=== PATIENT | male | born 1960 | race Caucasian/White ===

== ENCOUNTER 2017-01-10 21:10 | Emergency (ER) | payer MEDICARE ==
--- NOTE | 2017-01-11 01:31 | ED CLINICAL REPORT ---
Clinical Report - Physicians/Mid Levels [place] [address] [place] [address] 01/10/2017 21:13 Patient: ZAC FLANAGAN Time Seen: 22:30. Arrived- By private vehicle. Historian- patient and family. HISTORY OF PRESENT ILLNESS Chief Complaint: BACK PAIN. Onset was today Mr Flanagan has severe chronic back pain of years duration. Several months ago he became unable to follow up with this pain management service for financial reasons. He believes that his principle diagnosis is spinal stenosis. He pain as been difficult for years is worse for 7 days, and became intolerable today. and it is still present. It was abrupt in onset and has been constant and waxing/waning. Modifying factors. (pain is much worse with movement). It is described as being severe and in the area of the lower lumbar spine. The quality is noted to be "pain" and similar to prior episodes. No radiation. No bladder dysfunction, bowel dysfunction, sensory loss or motor loss. Additional history - No reg meds in 6 months. Patient denies an injury. No other injury. Similar symptoms previously: Many times. Recent medical care: Not recently seen/assessed. REVIEW OF SYSTEMS No fever, fever, eye irritation, mouth sores or chest pain. No difficulty breathing, abdominal pain, black stools, bloody stools or alteration in mental status. No head injury, numbness or weakness. The patient has had back pain. PAST HISTORY PCP: Dr Vern Rodríguez Illness: Back, psioriasis, PROBLEMS: Chronic Back Pain. Hypertension. Back Pain. --22:24 Girish Powell R.N. Arthritis of spine. --22:32 Girish Powell R.N. ADDITIONAL SURGERIES: Cervical spinal fusion. R knee surgery. --22:23 Girish Powell R.N. Tonsillectomy. Medications: Lisinopril Oral. Methocarbamol Oral. LIsinopril. Allergies: Demerol. Lactose (Intolerance). ADDITIONAL NOTES The nursing notes have been reviewed (Despite RN note of radiation of pain to the legs, pt tells me pain stays in the low back). PHYSICAL EXAM Vital Signs: 01/11/2017 01:35 BP: 113/97. HR: 88. RR: 16. O2 saturation: 95%. Bynum-Sy pain scale: 01/17. 01/10/2017 23:21 BP: 141/76. HR: 95. RR: 16. O2 saturation: 94%. 01/10/2017 22:20 BP: 155/82. HR: 108. RR: 16. O2 saturation: 96%. Temp: 98.3 F. Pain level now: 07/19. Appearance: Alert. Patient in moderate distress. HEENT: Normal external inspection. CVS: Heart sounds normal. Respiratory: No respiratory distress. Breath sounds normal. Abdomen: Soft and nontender. Obese. Back: Soft tissue tenderness in the mid and lower central lumbar area. No vertebral point tenderness. Skin: Skin cool. Normal skin color. Extremities: Extremities exhibit normal ROM. Extremities nontender. Neuro: Mood/affect normal. No motor deficit. No sensory deficit. Straight leg raising: (SLR negative except for back pain, no leg pain). PROGRESS AND PROCEDURES Course of Care: 00:05 01/11/17. Pain is better after Percocet and Valium with Toradol. No evidence of neurosurgical emergency. Pain management may prove problematic for financial reasons. Disposition: Discharged. Condition: stable. CLINICAL IMPRESSION Acute nontraumatic back pain. INSTRUCTIONS (YOUR DR WILL NEED TO SUPPLY ADDITIONAL PAIN RELIEF SEE IF YOU CAN SEE YOUR PAIN DR AGAIN. IBUPROFEN 600 MG THREE TIMES A DAY IF TOLERATED.). Prescription Medications: Robaxin 750 mg: Take 2 orally every 6 hours as needed for muscle spasm. Dispense thirty (30). No refills. Substitution is permissible. Oxycodone/APAP 5 mg/325 mg: take 1-2 tablets orally every 4 hours as needed for pain. Dispense twenty (20). No refill. Follow-up: Follow up with your doctor. Call for the next available appointment. Understanding of the discharge instructions verbalized. (Electronically signed by Ricardo Quigley MD 01/12/2017 10:14)
--- NOTE | 2017-01-11 01:31 | ED ORDER SUMMARY ---
..... Patient: ZAC SOFIA OrderSheet [facility] VisitID: [id number] [address] [place] [address] 56y, M Registration Date/Time: 01/10/2017 ORDER SHEET Weight: 102.0 kg (stated) Allergies: Demerol, Lactose (Intolerance) GENERAL ORDERS: MEDICATION ORDERS: Valium PO 5 mg (HIGH ALERT MEDICATION, NOW) (00:04 01/11/2017 Gideon BOSWELL) (0:20 MCook R.N.) Percocet PO 2 tabs 5/325 (NOW) (00:04 01/11/2017 Gideon BOSWELL) (0:20 MCook R.N.) Ketorolac IM 60 mg (NOW) (00:08 01/11/2017 Gideon BOSWELL) (0:21 MCook R.N.) IV FLUIDS: ORDER SHEET NOTES: [Electronically signed by Ellen Fink R.N. (01:40 01/11/2017)] [Electronically signed by Ricardo Quigley MD (10:14 01/12/2017)] [Electronically locked/signed by Ellen Fink R.N. (01:40 01/11/2017)]
--- NOTE | 2017-01-11 01:31 | ED NURSING NOTES ---
Clinical Report - Nurses [facility] [address] [place] [address] 01/10/2017 21:13 Patient: ZAC SOFIA TRIAGE Triage time 22:20 Jan 10 2017. Acuity: LEVEL 4. Chief Complaint: NECK PAIN and BACK PAIN and (Midline lower back). SEPSIS SCREEN: Sepsis Screen. Negative (no infection suspected/documented). --22:28 Girish Powell R.N. 22:20 01/10/17. BP: 155/82. HR: 108. RR: 16. O2 saturation: 96% on room air. Temp: 98.3 F. Pain level now: 07/19. --22:28 Girish Powell R.N. Weight: 102 kg stated. Height/Length: 66 inches Per Patient. BMI: 36.3. --22:20 Girish Powell R.N. Medications LIsinopril. --22:22 Girish Powell R.N. Lisinopril Oral. Methocarbamol Oral. --22:22 Girish Powell R.N. Allergies Demerol. --22:22 Girsih Powell R.N. Lactose (Intolerance). --22:22 Girish Powell R.N. History Arrived by private vehicle. Historian: patient. Accompanied by family. This started today. ( Pt has psoriatic arthritis, but today's pain is different, states he feels he has a pinched nerve, has cramping in the back of bilateral legs.). He has had trouble walking. Treatment BRANCH OPERATIONS MANAGER: (Muscle relaxant). PAST MEDICAL HX: Immunizations: up-to-date. SOCIAL HX: Current every day heavy tobacco smoker- 1 pack per day. Occasional alcohol use. History of drug use: marijuana. No infectious disease exposure. ABUSE ASSESSMENT: No report of abuse. SELF HARM ASSESSMENT: A self harm assessment was performed. The patient answered "yes" to the question "Have you recently felt down, depressed, or hopeless?" and "no" to the question "Have you noticed less interest or pleasure in doing things?", "Do you have thoughts of harming or killing yourself?", "Are you here because you tried to hurt yourself?", "Have you ever tried to hurt yourself before today?", "Have you recently had thoughts about harming or killing others?" and "Do you have any dangerous items in your possession?". FALL RISK ASSESSMENT: Fall risk assessment completed. No fall risk identified. NUTRITIONAL RISK ASSESSMENT: The nutritional risk assessment revealed no deficiencies. FUNCTIONAL ASSESSMENT: Functional assessment: no impairments noted. LEARNING NEEDS ASSESSMENT: The learning needs assessment revealed no barriers. SKIN INTEGRITY ASSESSMENT: Skin integrity risk assessment completed. No skin integrity risk identified. --22:28 Girish Powell R.N. PROBLEMS: Chronic Back Pain. Hypertension. Back Pain. --22:24 Girish Powell R.N. Arthritis of spine. --22:32 Girish Powell R.N. ADDITIONAL SURGERIES: Cervical spinal fusion. R knee surgery. --22:23 Girish Powell R.N. Tonsillectomy. --22:23 Girish Powell R.N. The following entry was struck by Girish Powell R.N., 22:23 <<STRICKEN ENTRY-- Tonsill. --22:23 Girish Powell R.N. --END STRIKE>>. Interventions ID band on patient. To room. --22:28 Girish Powell R.N. PHYSICAL ASSESSMENT GENERAL / NEURO / PSYCH: Alert. Oriented X 4. Appears in pain. RESPIRATORY: Mild respiratory distress. Breath sounds within normal limits. GI / : Abdomen soft. Bowel sounds within normal limits. EXTREMITIES: Limited ROM present (Generalized. Pt has a shuffling gate, stooped posture.). BACK: Limited ROM of the neck. Soft tissue tenderness. --22:30 Girish Powell R.N. NURSING PROGRESS NOTES The plan of care for this patient has been created. Monitoring of patient in place. Reassurance given. Call light placed in reach. Side rails up x 2. Bed placed in lowest position. Patient ready for evaluation- chart flagged and ED physician notified. ( Pt resting in bed, lying on L side, Pt is in obvious pain. MD in to see Pt, Pt's brother at bedside.). --22:31 Girish Powell R.N. ( Pt resting in his room, quiet, pleasant, able to make needs known, call light in reach.). --23:22 Girish Powell R.N. 23:21 01/10/17. BP: 141/76. HR: 95. RR: 16. O2 saturation: 94% on room air. --23:22 Girish Powell R.N. 00:20 01/11/2017 Valium (Diazepam) PO Tablets 5 mg given. Allergies verified, confirmed 5 rights and sedative warning given to the patient. --00:20 Girish Powell R.N. 00:20 01/11/2017 Percocet (Oxycodone-Acetaminophen) PO 5/325 mg Tablets 2 tab given. Allergies verified, confirmed 5 rights and sedative warning given to the patient and patient's family. --00:20 Girish Pwoell R.N. 00:21 01/11/2017 Ketorolac IM 60 mg given. Given in the right ventral gluteus. Allergies verified and confirmed 5 rights. --00:21 Girish Powell R.N. Care transferred and report received. --01:10 Ellen Fink R.N. 01:01/11/2017 Valium PO Response: no adverse reaction symptoms have improved. --01:26 Girish Powell R.N. 01:01/11/2017 Percocet PO Response: no adverse reaction pain is improving. --01:26 Girish Powell R.N. 01:01/11/2017 Ketorolac IM Response: no adverse reaction pain is improving. --01:26 Girish Powell R.N. DISPOSITION / DISCHARGE Condition at departure: stable. No learning barriers present. Discharge instructions provided and reviewed with the patient. Reviewed medication(s) side effects, precautions, dosing and course information. Prescription(s) given to the patient. Patient verbalized understanding. Written instructions provided in Turkmen. The patient was discharged home and accompanied by underbaster. He left the Emergency Department in a wheelchair and via private vehicle. Apprentice Cosmetologist driving. --01:40 Ellen Fink R.N. 01:35 01/11/17. BP: 113/97. HR: 88. RR: 16 (regular and unlabored). O2 saturation: 95% on room air. Temp: deferred. Bynum-Sy pain scale: 01/17. --01:40 Ellen Fink R.N. Departure time: 01:40. --01:40 Ellen Fink R.N. Locked/Released at 01/11/2017 1:40 by Ellen Fink R.N.
--- NOTE | 2017-01-11 01:31 | ED ORDER SUMMARY ---
..... Patient: ZAC SOFIA OrderSheet [facility] VisitID: [id number] [address] [place] [address] 56y, M Registration Date/Time: 01/10/2017 ORDER SHEET Weight: 102.0 kg (stated) Allergies: Demerol, Lactose (Intolerance) GENERAL ORDERS: MEDICATION ORDERS: Valium PO 5 mg (HIGH ALERT MEDICATION, NOW) (00:04 01/11/2017 Gideon BOSWELL) (0:20 MCook R.N.) Percocet PO 2 tabs 5/325 (NOW) (00:04 01/11/2017 Gideon BOSWELL) (0:20 MCook R.N.) Ketorolac IM 60 mg (NOW) (00:08 01/11/2017 Gideon BOSWELL) (0:21 MCook R.N.) IV FLUIDS: ORDER SHEET NOTES: [Electronically signed by Ellen Fink R.N. (01:40 01/11/2017)] [Electronically signed by Ricardo Quigley MD (10:14 01/12/2017)] [Electronically locked/signed by Ellen Fink R.N. (01:40 01/11/2017)]
--- NOTE | 2017-01-11 01:31 | ED NURSING NOTES ---
Clinical Report - Nurses [facility] [address] [place] [address] 01/10/2017 21:13 Patient: ZAC SOFIA TRIAGE Triage time 22:20 Jan 10 2017. Acuity: LEVEL 4. Chief Complaint: NECK PAIN and BACK PAIN and (Midline lower back). SEPSIS SCREEN: Sepsis Screen. Negative (no infection suspected/documented). --22:28 Girish Powell R.N. 22:20 01/10/17. BP: 155/82. HR: 108. RR: 16. O2 saturation: 96% on room air. Temp: 98.3 F. Pain level now: 07/19. --22:28 Girish Powell R.N. Weight: 102 kg stated. Height/Length: 66 inches Per Patient. BMI: 36.3. --22:20 Girish Powell R.N. Medications LIsinopril. --22:22 Girish Powell R.N. Lisinopril Oral. Methocarbamol Oral. --22:22 Girish Powell R.N. Allergies Demerol. --22:22 Girish Powell R.N. Lactose (Intolerance). --22:22 Girish Powell R.N. History Arrived by private vehicle. Historian: patient. Accompanied by family. This started today. ( Pt has psoriatic arthritis, but today's pain is different, states he feels he has a pinched nerve, has cramping in the back of bilateral legs.). He has had trouble walking. Treatment MEDIA TRAFFIC MANAGER: (Muscle relaxant). PAST MEDICAL HX: Immunizations: up-to-date. SOCIAL HX: Current every day heavy tobacco smoker- 1 pack per day. Occasional alcohol use. History of drug use: marijuana. No infectious disease exposure. ABUSE ASSESSMENT: No report of abuse. SELF HARM ASSESSMENT: A self harm assessment was performed. The patient answered "yes" to the question "Have you recently felt down, depressed, or hopeless?" and "no" to the question "Have you noticed less interest or pleasure in doing things?", "Do you have thoughts of harming or killing yourself?", "Are you here because you tried to hurt yourself?", "Have you ever tried to hurt yourself before today?", "Have you recently had thoughts about harming or killing others?" and "Do you have any dangerous items in your possession?". FALL RISK ASSESSMENT: Fall risk assessment completed. No fall risk identified. NUTRITIONAL RISK ASSESSMENT: The nutritional risk assessment revealed no deficiencies. FUNCTIONAL ASSESSMENT: Functional assessment: no impairments noted. LEARNING NEEDS ASSESSMENT: The learning needs assessment revealed no barriers. SKIN INTEGRITY ASSESSMENT: Skin integrity risk assessment completed. No skin integrity risk identified. --22:28 Girish Powell R.N. PROBLEMS: Chronic Back Pain. Hypertension. Back Pain. --22:24 Girish Powell R.N. Arthritis of spine. --22:32 Girish Powell R.N. ADDITIONAL SURGERIES: Cervical spinal fusion. R knee surgery. --22:23 Girish Powell R.N. Tonsillectomy. --22:23 Girish Powell R.N. The following entry was struck by Girish Powell R.N., 22:23 <<STRICKEN ENTRY-- Tonsill. --22:23 Girish Powell R.N. --END STRIKE>>. Interventions ID band on patient. To room. --22:28 Girish Powell R.N. PHYSICAL ASSESSMENT GENERAL / NEURO / PSYCH: Alert. Oriented X 4. Appears in pain. RESPIRATORY: Mild respiratory distress. Breath sounds within normal limits. GI / : Abdomen soft. Bowel sounds within normal limits. EXTREMITIES: Limited ROM present (Generalized. Pt has a shuffling gate, stooped posture.). BACK: Limited ROM of the neck. Soft tissue tenderness. --22:30 Girish Powell R.N. NURSING PROGRESS NOTES The plan of care for this patient has been created. Monitoring of patient in place. Reassurance given. Call light placed in reach. Side rails up x 2. Bed placed in lowest position. Patient ready for evaluation- chart flagged and ED physician notified. ( Pt resting in bed, lying on L side, Pt is in obvious pain. MD in to see Pt, Pt's brother at bedside.). --22:31 Girish Powell R.N. ( Pt resting in his room, quiet, pleasant, able to make needs known, call light in reach.). --23:22 Girish Powell R.N. 23:21 01/10/17. BP: 141/76. HR: 95. RR: 16. O2 saturation: 94% on room air. --23:22 Girish Powell R.N. 00:20 01/11/2017 Valium (Diazepam) PO Tablets 5 mg given. Allergies verified, confirmed 5 rights and sedative warning given to the patient. --00:20 Girish Powell R.N. 00:20 01/11/2017 Percocet (Oxycodone-Acetaminophen) PO 5/325 mg Tablets 2 tab given. Allergies verified, confirmed 5 rights and sedative warning given to the patient and patient's family. --00:20 Girish Powell R.N. 00:21 01/11/2017 Ketorolac IM 60 mg given. Given in the right ventral gluteus. Allergies verified and confirmed 5 rights. --00:21 Girish Powell R.N. Care transferred and report received. --01:10 Ellen Fink R.N. 01:01/11/2017 Valium PO Response: no adverse reaction symptoms have improved. --01:26 Girish Powell R.N. 01:01/11/2017 Percocet PO Response: no adverse reaction pain is improving. --01:26 Girish Powell R.N. 01:01/11/2017 Ketorolac IM Response: no adverse reaction pain is improving. --01:26 Girish Powell R.N. DISPOSITION / DISCHARGE Condition at departure: stable. No learning barriers present. Discharge instructions provided and reviewed with the patient. Reviewed medication(s) side effects, precautions, dosing and course information. Prescription(s) given to the patient. Patient verbalized understanding. Written instructions provided in Urdu. The patient was discharged home and accompanied by viscosity inspector. He left the Emergency Department in a wheelchair and via private vehicle. Gourmet Coffee Attendant driving. --01:40 Ellen Fink R.N. 01:35 01/11/17. BP: 113/97. HR: 88. RR: 16 (regular and unlabored). O2 saturation: 95% on room air. Temp: deferred. Bynum-Sy pain scale: 01/17. --01:40 Ellen Fink R.N. Departure time: 01:40. --01:40 Ellen Fink R.N. Locked/Released at 01/11/2017 1:40 by Ellen Fink R.N.
--- NOTE | 2017-01-12 10:15 | ED DISCHARGE INSTRUCTIONS ---
Patient: ZAC SOFIA General Instructions [facility] VisitID: [id number] [place] [address] 56y, M Registration Date/Time: 01/10/2017 Acute nontraumatic back pain. INSTRUCTIONS (YOUR DR WILL NEED TO SUPPLY ADDITIONAL PAIN RELIEF SEE IF YOU CAN SEE YOUR PAIN DR AGAIN. IBUPROFEN 600 MG THREE TIMES A DAY IF TOLERATED.). Prescription Medications: Robaxin 750 mg: Take 2 orally every 6 hours as needed for muscle spasm. Dispense thirty (30). No refills. Substitution is permissible. Oxycodone/APAP 5 mg/325 mg: take 1-2 tablets orally every 4 hours as needed for pain. Dispense twenty (20). No refill. Follow-up: Follow up with your doctor. Call for the next available appointment. Understanding of the discharge instructions verbalized. ADDITIONAL INFORMATION Back Pain [Acute Or Chronic] Back pain is usually caused by an injury to the muscles or ligaments of the spine. Sometimes the disks that separate each bone in the spine may bulge and cause pain by pressing on a nearby nerve. Back pain may also appear after a sudden twisting/bending force (such as in a car accident), after a simple awkward movement, or lifting something heavy with poor body positioning. In either case, muscle spasm is often present and adds to the pain. Acute back pain usually gets better in one to two weeks. Back pain related to disk disease, arthritis in the spinal joints or spinal stenosis (narrowing of the spinal canal) can become chronic and last for months or years. Unless you had a physical injury (for example, a car accident or fall) X-rays are usually not ordered for the initial evaluation of back pain. If pain continues and does not respond to medical treatment, x-rays and other tests may be performed at a later time. Home Care: You may need to stay in bed the first few days. But, as soon as possible, begin sitting or walking to avoid problems with prolonged bed rest (muscle weakness, worsening back stiffness and pain, blood clots in the legs). When in bed, try to find a position of comfort. A firm mattress is best. Try lying flat on your back with pillows under your knees. You can also try lying on your side with your knees bent up towards your chest and a pillow between your knees. Avoid prolonged sitting. This puts more stress on the lower back than standing or walking. During the first two days after injury, apply an ICE PACK to the painful area for 20 minutes every 2-4 hours. This will reduce swelling and pain. HEAT (hot shower, hot bath or heating pad) works well for muscle spasm. You can start with ice, then switch to heat after two days. Some patients feel best alternating ice and heat treatments. Use the one method that feels the best to you. You may use acetaminophen (Tylenol) or ibuprofen (Motrin, Advil) to control pain, unless another pain medicine was prescribed. [NOTE: If you have chronic liver or kidney disease or ever had a stomach ulcer or GI bleeding, talk with your doctor before using these medicines.] Be aware of safe lifting methods and do not lift anything over 15 pounds until all the pain is gone. Follow Up with your doctor or this facility if your symptoms do not start to improve after one week. Physical therapy may be needed. [NOTE: If X-rays were taken, they will be reviewed by a radiologist. You will be notified of any new findings that may affect your care.] Get Prompt Medical Attention if any of the following occur: Pain becomes worse or spreads to your legs Weakness or numbness in one or both legs Loss of bowel or bladder control Numbness in the groin or genital area Oxycodone Hydrochloride, Acetaminophen Oral tablet What is this medicine? ACETAMINOPHEN; OXYCODONE (a set a SHERRI felix fen; ox i KOE done) is a pain reliever. It is used to treat mild to moderate pain. How should I use this medicine? Take this medicine by mouth with a full glass of water. Follow the directions on the prescription label. Take your medicine at regular intervals. Do not take your medicine more often than directed. Talk to your scrap picker regarding the use of this medicine in children. Special care may be needed. Patients over 65 years old may have a stronger reaction and need a smaller dose. What side effects may I notice from receiving this medicine? Side effects that you should report to your doctor or health day care home provider as soon as possible: allergic reactions like skin rash, itching or hives, swelling of the face, lips, or tongue breathing difficulties, wheezing confusion light headedness or fainting spells severe stomach pain yellowing of the skin or the whites of the eyes Side effects that usually do not require medical attention (report to your doctor or health day care home provider if they continue or are bothersome): dizziness drowsiness nausea vomiting What may interact with this medicine? alcohol antihistamines barbiturates like amobarbital, butalbital, butabarbital, methohexital, pentobarbital, phenobarbital, thiopental, and secobarbital benztropine drugs for bladder problems like solifenacin, trospium, oxybutynin, tolterodine, hyoscyamine, and methscopolamine drugs for breathing problems like ipratropium and tiotropium drugs for certain stomach or intestine problems like propantheline, homatropine methylbromide, glycopyrrolate, atropine, belladonna, and dicyclomine general anesthetics like etomidate, ketamine, nitrous oxide, propofol, desflurane, enflurane, halothane, isoflurane, and sevoflurane medicines for depression, anxiety, or psychotic disturbances medicines for sleep muscle relaxants naltrexone narcotic medicines (opiates) for pain phenothiazines like perphenazine, thioridazine, chlorpromazine, mesoridazine, fluphenazine, prochlorperazine, promazine, and trifluoperazine scopolamine tramadol trihexyphenidyl What if I miss a dose? If you miss a dose, take it as soon as you can. If it is almost time for your next dose, take only that dose. Do not take double or extra doses. Where should I keep my medicine? Keep out of the reach of children. This medicine can be abused. Keep your medicine in a safe place to protect it from theft. Do not share this medicine with anyone. Selling or giving away this medicine is dangerous and against the law. Store at room temperature between 20 and 25 degrees C (68 and 77 degrees F). Keep container tightly closed. Protect from light. This medicine may cause accidental overdose and if it is taken by other adults, children, or pets. Flush any unused medicine down the toilet to reduce the chance of harm. Do not use the medicine after the expiration date. What should I tell my health care provider before I take this medicine? They need to know if you have any of these conditions: brain tumor Crohn's disease, inflammatory bowel disease, or ulcerative colitis drink more than 3 alcohol containing drinks per day drug abuse or addiction head injury heart or circulation problems kidney disease or problems going to the bathroom liver disease lung disease, asthma, or breathing problems an unusual or allergic reaction to acetaminophen, oxycodone, other opioid analgesics, other medicines, foods, dyes, or preservatives or trying to get breast-feeding What should I watch for while using this medicine? Tell your doctor or health day care home provider if your pain does not go away, if it gets worse, or if you have new or a different type of pain. You may develop tolerance to the medicine. Tolerance means that you will need a higher dose of the medication for pain relief. Tolerance is normal and is expected if you take this medicine for a long time. Do not suddenly stop taking your medicine because you may develop a severe reaction. Your body becomes used to the medicine. This does NOT mean you are addicted. Addiction is a behavior related to getting and using a drug for a non-medical reason. If you have pain, you have a medical reason to take pain medicine. Your doctor will tell you how much medicine to take. If your doctor wants you to stop the medicine, the dose will be slowly lowered over time to avoid any side effects. You may get drowsy or dizzy. Do not drive, use machinery, or do anything that needs mental alertness until you know how this medicine affects you. Do not stand or sit up quickly, especially if you are an older patient. This reduces the risk of dizzy or fainting spells. Alcohol may interfere with the effect of this medicine. Avoid alcoholic drinks. There are different types of narcotic medicines (opiates) for pain. If you take more than one type at the same time, you may have more side effects. Give your health care provider a list of all medicines you use. Your doctor will tell you how much medicine to take. Do not take more medicine than directed. Call emergency for help if you have problems breathing. The medicine will cause constipation. Try to have a bowel movement at least every 2 to 3 days. If you do not have a bowel movement for 3 days, call your doctor or health day care home provider. Do not take Tylenol (acetaminophen) or medicines that have acetaminophen with this medicine. Too much acetaminophen can be very dangerous. Many nonprescription medicines contain acetaminophen. Always read the labels carefully to avoid taking more acetaminophen. You have been given the following additional information: Back Pain (Acute Or Chronic) Oxycodone Hydrochloride, Acetaminophen Oral tablet (Electronically signed by Ricardo Quigley MD 01/12/2017 10:14)
--- NOTE | 2017-01-12 10:15 | ED MAR SUMMARY ---
..... Medication Administration Record [facility] [address] [place] [address] Patient: ZAC SOFIA Visit ID: [id number] 56y, M Weight: 102.0 kg Height/Length: 66 in BMI: 36.3 ALLERGIES: Lactose (Intolerance), Demerol Given 00:20 01/11/2017 Girish Powell R.N. Medication Administered: VALIUM [PO] (DIAZEPAM), Dose: 5 mg Tablets PO. Medication Ordered: Valium PO 5 mg (HIGH ALERT MEDICATION, NOW). Given 00:20 01/11/2017 Girish Powell R.N. Medication Administered: PERCOCET [PO] (OXYCODONE-ACETAMINOPHEN), Dose: 2 tab 5/325 mg Tablets PO. Medication Ordered: Percocet PO 2 tabs 5/325 (NOW). Given 00:21 01/11/2017 Girish Powell R.NJc Medication Administered: KETOROLAC [IM], Dose: 60 mg IM. Medication Ordered: Ketorolac IM 60 mg (NOW).
--- NOTE | 2017-01-12 10:15 | ED MED RECONCILIATION SUMMARY ---
Patient: ZAC SOFIA Medication Reconciliation Report [facility] VisitID: [id number] [address] [place] [address] 56y, M Registration Date/Time: 01/10/2017 Weight: 102.0 kg Height/Length: 66 in. BMI: 36.3 ALLERGIES: Demerol, Lactose (Intolerance) The patient's Home Medications are listed below: THE FOLLOWING MEDICATIONS NEED TO BE RECONCILED: LIsinopril Lisinopril Oral Methocarbamol Oral The source(s) of the original Home Medication information: Not obtained. The following Medications were given to the patient in the Emergency Department: Valium [PO] PO 5 mg, administered: 01/11/2017 12:20:00 AM Percocet [PO] PO 2 tab, administered: 01/11/2017 12:20:00 AM Ketorolac [IM] IM 60 mg, administered: 01/11/2017 12:21:00 AM The following Medications were prescribed to the patient: Robaxin 750 mg: Take 2 orally every 6 hours as needed for muscle spasm. Dispense thirty (30). No refills. Substitution is permissible. -- Ricardo Quigley MD Oxycodone/APAP 5 mg/325 mg: take 1-2 tablets orally every 4 hours as needed for pain. Dispense twenty (20). No refill. -- Ricardo Quigley MD
--- NOTE | 2017-01-12 10:15 | ED MAR SUMMARY ---
..... Medication Administration Record [facility] [address] [place] [address] Patient: ZAC SOFIA Visit ID: [id number] 56y, M Weight: 102.0 kg Height/Length: 66 in BMI: 36.3 ALLERGIES: Lactose (Intolerance), Demerol Given 00:20 01/11/2017 Girish Powell R.N. Medication Administered: VALIUM [PO] (DIAZEPAM), Dose: 5 mg Tablets PO. Medication Ordered: Valium PO 5 mg (HIGH ALERT MEDICATION, NOW). Given 00:20 01/11/2017 Girish Powell R.N. Medication Administered: PERCOCET [PO] (OXYCODONE-ACETAMINOPHEN), Dose: 2 tab 5/325 mg Tablets PO. Medication Ordered: Percocet PO 2 tabs 5/325 (NOW). Given 00:21 01/11/2017 Girish Powell R.NJc Medication Administered: KETOROLAC [IM], Dose: 60 mg IM. Medication Ordered: Ketorolac IM 60 mg (NOW).
--- NOTE | 2017-01-12 10:15 | ED MED RECONCILIATION SUMMARY ---
Patient: ZAC SOFIA Medication Reconciliation Report [facility] VisitID: [id number] [address] [place] [address] 56y, M Registration Date/Time: 01/10/2017 Weight: 102.0 kg Height/Length: 66 in. BMI: 36.3 ALLERGIES: Demerol, Lactose (Intolerance) The patient's Home Medications are listed below: THE FOLLOWING MEDICATIONS NEED TO BE RECONCILED: LIsinopril Lisinopril Oral Methocarbamol Oral The source(s) of the original Home Medication information: Not obtained. The following Medications were given to the patient in the Emergency Department: Valium [PO] PO 5 mg, administered: 01/11/2017 12:20:00 AM Percocet [PO] PO 2 tab, administered: 01/11/2017 12:20:00 AM Ketorolac [IM] IM 60 mg, administered: 01/11/2017 12:21:00 AM The following Medications were prescribed to the patient: Robaxin 750 mg: Take 2 orally every 6 hours as needed for muscle spasm. Dispense thirty (30). No refills. Substitution is permissible. -- Ricardo Quigley MD Oxycodone/APAP 5 mg/325 mg: take 1-2 tablets orally every 4 hours as needed for pain. Dispense twenty (20). No refill. -- Ricardo Quigley MD
== END 2017-01-11 01:35 | disposition home or self-care (01) ==
LOC: ED SRH 21:10
DX: M54.5 Low back pain (principal); I10 Essential (primary) hypertension; F17.210 Nicotine dependence, cigarettes, uncomplicated; Z79.899 Other long term (current) drug therapy; Z88.5 Allergy status to narcotic agent; E73.9 Lactose intolerance, unspecified